=== PATIENT | female | born 1995 | race Two or more races ===

== ENCOUNTER → 2020-03-18 | Emergency (ER) | payer OTHER ==
[~2020-03-18] VITALS: Ht 157.5 cm; Wt 63.5 kg
== END | disposition home or self-care (01) ==
LOC: ER 18:35
DX: K59.09 Other constipation (principal)

== ENCOUNTER 2020-05-02 07:09 | Day surgery (SDC) | payer OTHER | END 2020-05-02 12:25 | disposition home or self-care (01) | LOC: AMB-ENDOS 07:09 | PROVIDERS: ATTEND Colon & Rectal Surgery | DX: K62.89 Other specified diseases of anus and rectum (principal); K64.0 First degree hemorrhoids ==